=== PATIENT | female | born 1995 | race Caucasian/White ===

== ENCOUNTER → 2016-12-20 | Emergency (ER) | payer MEDICAID ==
[~2016-12-20] VITALS: Ht 157.5 cm; Wt 75.2 kg
[~2016-12-20] MED LIST: CEPH-443 PO; CIPR-193 PO; FLUC150T17 PO; HYDR-3498 PO; HYDR-906 PO; IBUP-1542 PO; IBUP800T25 PO; LIDOCAINE 2%/EPI MPF (SDV) 20 ML VIAL INJ ONE; SULF1TAB31 PO; TRAM50TA2 PO
[2016-12-20 20:37] VITALS: Ht 157.5 cm; Wt 75.2 kg
--- NOTE | 2016-12-20 23:52 | ERD ---
ER Documentation Chief Complaint Chief Complaint Right flank pain x 3 days HPI Otherwise healthy 21-year-old female presenting with a chief complaint of back pain 2 days. Patient has had symptoms like this in the past that have resolved spontaneously. Patient denies mechanism of injury, history of cancer, recent illness, unexplained weight loss, saddle anesthesia, general neurological deficit, incontinence, urinary retention, thoracic pain, or pain at rest. Has not taken any medications to relieve the symptoms. Patient has no other complaints and describes no other associated manifestations. Nursing notes have been reviewed and are consistent with history given. ROS All systems reviewed and are negative except as per history of present illness. Medications Home Meds Active Scripts Hydrocodone/Acetaminophen ([place] 5-325 Tablet) 1 Each Tablet, 1 TAB PO Q6H Y for PAIN, #7 TAB Prov:HAILEY PEREZ PA-C 12/21/16 Sulfamethoxazole/Trimethoprim* (Bactrim Ds* Tablet) 1 Each Tablet, 1 TAB PO BID , #14 TAB Prov:HAILEY PEREZ PA-C 12/21/16 Cephalexin* (Keflex*) 500 Mg Capsule, 500 MG PO QID for 5 Days, CAP Prov:HAILEY PEREZ PA-C 12/21/16 Fluconazole* (Diflucan*) 150 Mg Tablet, 150 MG PO DAILY, #1 TAB Prov:TERRA COLMENARES NP 01/08/16 Ciprofloxacin Hcl* (Ciprofloxacin Hcl*) 250 Mg Tablet, 250 MG PO BID, #6 TAB Prov:TERRA COLMENARES NP 01/08/16 Tramadol HCl (Tramadol HCl) 50 Mg Tab, 50 MG PO Q4 Y for PAIN, #20 TAB Prov:JERILYN OLIVA PA-C 12/12/14 Hydrocodone Bit-Acetaminophen* ([place]*) 5-325 Mg Tab, 1 TAB PO Q6 Y for PAIN, # 20 TAB Prov:OMAR CRAWLEY NP 12/03/14 Ibuprofen* (Ibuprofen*) 600 Mg Tablet, 600 MG PO Q6H Y for PA, #30 TAB Prov:OMAR CRAWLEY NP 12/03/14 Reported Medications [none] Unknown Strength No Conflict Check 12/03/14 Allergies Allergies: Uncoded Allergies: ORANGE (Allergy, Severe, facial itching, 10/07/11) PMhx/Soc Medical and Surgical Hx: pt denies Medical Hx History of Surgery: Yes (Tonsillectomy) Anesthesia Reaction: No Hx Neurological Disorder: No Hx Respiratory Disorders: No Hx Cardiac Disorders: No Hx Psychiatric Problems: No Hx Miscellaneous Medical Probl: No Hx Alcohol Use: Yes Hx Substance Use: No Hx Tobacco Use: Yes Smoking Status: Current every day smoker Physical Exam Vitals Vital Signs Date Time Temp Pulse Resp B/P Pulse Ox O2 Delivery O2 Flow Rate FiO2 12/20/16 20:37 98.9 114 20 122/75 99 Physical Exam Const: Well-appearing 21-year-old female no acute distress lying on the gurney with initial presentation Head: Atraumatic Eyes: Normal Conjunctiva. No nystagmus. EOMI, PERRLA. ENT: Normal External Ears, Nose and Mouth. Neck: Full range of motion..~ No meningismus. Resp: Clear to auscultation bilaterally Cardio: Regular rate and rhythm, no murmurs. Cap refill less than 2 seconds. Dorsalis pedis posterior tibial pulses 2+. Radial pulses 2+. Abd: Soft, non tender, non distended. Normal bowel sounds Skin: No petechiae or rashes. 3 cm erythematous nonraised tender to palpation and fluctuant area over the upper right aspect of the buttocks. No discharge noted. Mild induration. Back: No midline or flank tenderness. Negative straight leg raise. Neurologically intact. Limited range of motion secondary to pain. Ext: No cyanosis, or edema Neur: Awake and alert Psych: Normal Mood and Affect Results 24 hrs Current Medications Medications (Trade) Dose Ordered Sig/Jeremiah Route PRN Reason Start Time Stop Time Status Last Admin Dose Admin Lidocaine/ Epinephrine (Xylocaine 2%/ Epi Mpf(Sdv)) 20 ml ONCE ONCE INJ 12/21/16 00:00 12/21/16 00:01 DC Procedures/MDM Otherwise healthy 19-year-old female presenting with a chief complaint of back pain 2 days. No indications for CT or MRI. Radiograph was obtained read by the radiologist as unremarkable. Skin complaint is most consistent with abscess versus pilonidal cyst. Area was anesthetized with 3 mL of lidocaine with epi. Adequate anesthesia. I&D was performed making a 1 cm horizontal laceration. 3-4 mL of blood was expressed. No purulent material was expressed. Area was packed with approximately 7 cm of packing with quarter inch. Antibiotics given including Bactrim and Keflex. I have no suspicion for cauda equina bony pathology or other neurovascular compromise. No suspicion for osteomyelitis, spreading cellulitis, or other serious bacterial infection. Most likely diagnosis is back pain of unknown etiology versus strain versus sprain. As well as skin abscess versus pilonidal cyst. I have spoke with the patient regarding their condition and future management. They have verbally responded that they understand their status and treatment plan. The patients vitals are stable, and their current condition is appropriate for discharge. The patient will be given discharge instructions with return precautions. Departure Diagnosis: Primary Impression: Abscess Additional Impression: Back pain Back pain location: low back pain Chronicity: chronic Back pain laterality : unspecified Sciatica presence: without sciatica Qualified Code: M54.5 - Chronic low back pain without sciatica, unspecified back pain laterality Condition: Stable Additional Instructions: Return 2 days for wound check. Take medications as prescribed. Finish the entire course of antibiotics. If symptoms worsen or change return to the emergency department immediately. If any adverse reactions occur with the medications discontinue them and return to the emergency department immediately. You have any questions about the medications ask us before you leave or consult the pharmacist. HAILEY PEREZ PA-C Dec 20, 2016 23:52
--- NOTE | 2016-12-21 01:51 | RADRPT ---
PROCEDURE: LUMBAR SPINE - 4 VIEWS CLINICAL INDICATION: 21-year-old female with back pain. TECHNIQUE: AP, lateral and cone-down lateral view of the lumbar spine were obtained. The images we re reviewed on a PACS workstation. COMPARISON: None. FINDINGS: The lumbar vertebral bodies and disk spaces have normal heights and anatomic alignment. No evidence of fracture or subluxation is seen. There is a anterosuperior L3 limbus vertebra identified. No sign ificant spondylolisthesis is seen. The partially visualized sacrum is unremarkable. The sacroiliac j oints are intact. There is retained stool within the colon without an obstructive pattern. IMPRESSION: 1. No acute fracture or dislocation. 2. Anterosuperior L3 limbus vertebra. 3. Retained stool. .Hayes Horn MD, Date Time Electronically viewed and signed by .Hayes Horn MD, on 12/21/2016 01:51 .M/
[2016-12-21 02:02] VITALS: BP 120/72; PULSE 100; RESP 20; TEMP 98.9
== END | disposition home or self-care (01) ==
LOC: FTE 20:11
DX: L02.31 Cutaneous abscess of buttock (principal); M54.5 Low back pain; F17.210 Nicotine dependence, cigarettes, uncomplicated
CPT/HCPCS: 10060; 72100; Z7502; Z7610

== ENCOUNTER 2016-12-24 00:13 | Emergency (ER) | payer MEDICAID ==
[~2016-12-24] VITALS: Ht 160 cm; Wt 71.5 kg
[~2016-12-24 00:13] MED LIST changes: -IBUP800T25 PO; -LIDOCAINE 2%/EPI MPF (SDV) 20 ML VIAL INJ ONE
[2016-12-24 00:15] VITALS: Ht 160 cm; Wt 71.5 kg
--- NOTE | 2016-12-24 02:06 | ERD ---
ER Documentation Chief Complaint Chief Complaint HPI 21-year-old female who presents emergency department for a wound check to her buttock area. Stated that she had I&D with packing 4 days ago that was done here in the emergency department. LMP: 15 days ago. A1. Denies headache, dizziness, blurred vision, neck pain, shoulder pain, chest pain , abdominal pain, nausea, vomiting, constipation, diarrhea, loss of bowel bladder control, changes in bowel bladder habits, or possibility of being , urinary symptoms, numbness or tingling sensation, fever, chills. Allergies to arrange. No past medical history. Surgical history of tonsillectomy. Medication: Been taking Keflex and Bactrim. Social: Not working at this time. Occasional drinks alcoholic beverages. Denies smoking, use of alcoholic beverages, use of illegal drugs. ROS All systems reviewed and are negative except as per history of present illness. Medications Home Meds Active Scripts Ibuprofen* (Motrin*) 800 Mg Tab, 800 MG PO Q8 Y for PAIN AND OR ELEVATED TEMP, # 30 TAB Prov:ROEL FRAGA 12/24/16 Hydrocodone/Acetaminophen ([place] 5-325 Tablet) 1 Each Tablet, 1 TAB PO Q6H Y for PAIN, #7 TAB Prov:HAILEY PEREZ PA-C 12/21/16 Sulfamethoxazole/Trimethoprim* (Bactrim Ds* Tablet) 1 Each Tablet, 1 TAB PO BID , #14 TAB Prov:HAILEY PEREZ PA-C 12/21/16 Cephalexin* (Keflex*) 500 Mg Capsule, 500 MG PO QID for 5 Days, CAP Prov:HAILEY PEREZ PA-C 12/21/16 Fluconazole* (Diflucan*) 150 Mg Tablet, 150 MG PO DAILY, #1 TAB Prov:TERRA COLMENARES NP 01/08/16 Ciprofloxacin Hcl* (Ciprofloxacin Hcl*) 250 Mg Tablet, 250 MG PO BID, #6 TAB Prov:TERRA COLMENARES NP 01/08/16 Tramadol HCl (Tramadol HCl) 50 Mg Tab, 50 MG PO Q4 Y for PAIN, #20 TAB Prov:JERILYN OLIVA PA-C 12/12/14 Hydrocodone Bit-Acetaminophen* ([place]*) 5-325 Mg Tab, 1 TAB PO Q6 Y for PAIN, # 20 TAB Prov:OMAR CRAWLEY NP 12/03/14 Ibuprofen* (Ibuprofen*) 600 Mg Tablet, 600 MG PO Q6H Y for PA, #30 TAB Prov:OMAR CRAWLEY NP 12/03/14 Reported Medications [none] Unknown Strength No Conflict Check 12/03/14 Allergies Allergies: Uncoded Allergies: ORANGE (Allergy, Severe, facial itching, 10/07/11) PMhx/Soc History of Surgery: Yes (Tonsillectomy) Anesthesia Reaction: No Hx Neurological Disorder: No Hx Respiratory Disorders: No Hx Cardiac Disorders: No Hx Psychiatric Problems: No Hx Miscellaneous Medical Probl: No Hx Alcohol Use: Yes Hx Substance Use: No Hx Tobacco Use: Yes Smoking Status: Never smoker Physical Exam Vitals Vital Signs Date Time Temp Pulse Resp B/P Pulse Ox O2 Delivery O2 Flow Rate FiO2 12/24/16 00:15 98.5 62 81 144/61 100 Physical Exam Const: [] Head: Atraumatic Eyes: Normal Conjunctiva ENT: Normal External Ears, Nose and Mouth. Neck: Full range of motion..~ No meningismus. Resp: Clear to auscultation bilaterally Cardio: Regular rate and rhythm, no murmurs Abd: Soft, non tender, non distended. Normal bowel sounds Skin: No petechiae or rashes Back: No midline or flank tenderness Ext: No cyanosis, or edema Neur: Awake and alert Psych: Normal Mood and Affect Procedures/MDM 21-year-old female who presents emergency department for a wound check to her buttock area. Stated that she had I&D with packing 4 days ago that was done here in the emergency department. LMP: 15 days ago. A1. Denies headache, dizziness, blurred vision, neck pain, shoulder pain, chest pain , abdominal pain, nausea, vomiting, constipation, diarrhea, loss of bowel bladder control, changes in bowel bladder habits, or possibility of being , urinary symptoms, numbness or tingling sensation, fever, chills. Allergies to arrange. No past medical history. Surgical history of tonsillectomy. Medication: Been taking Keflex and Bactrim. Social: Not working at this time. Occasional drinks alcoholic beverages. Denies smoking, use of alcoholic beverages, use of illegal drugs. Physical exam: Right buttock area has wound with packing. No discharge. No bleeding. No induration. Examined with female rug hooker, Pearl DAVIS. Disease process was explained to the patient and family member. They both verbalized understanding and agreed with the plan of care. Treatment: Removal of packing. Bacitracin applied. Dressing applied. Reevaluation: No active bleeding. No discharge. No induration. Denies pain. Ambulatory with steady gait. No neurological deficits. No neurovascular deficits. Differential diagnosis: Wound check. Final diagnosis: Wound check. Prescription: Instructed to continue her prescribed medications. Follow-up with PCP in the next 24-48 hours. Come back here in the emergency department for any new symptoms or any worsening of symptoms. Come back here in the emergency department in 2 days for wound check. All questions and concerns are answered. Patient and family member verbalized understanding and agreed with the plan of care. Hemodynamically stable on discharge. Departure Diagnosis: Primary Impression: Encounter for wound re-check Condition: Stable Additional Instructions: Follow-up with PCP in the next 24-48 hours. Come back here in the emergency department for any new symptoms or any worsening of symptoms. Come back here in the emergency department in 2 days for wound check. All questions and concerns are answered. Patient and family member verbalized understanding and agreed with the plan of care. ROEL FRAGA Dec 24, 2016 02:06
[2016-12-24] MEDS ORDERED: IBUP800T25 PO (02:51)
== END 2016-12-24 03:03 | disposition home or self-care (01) ==
LOC: FTE 00:13
DX: Z48.01 Encounter for change or removal of surgical wound dressing (principal); Z87.891 Personal history of nicotine dependence
CPT/HCPCS: 99283

== ENCOUNTER 2017-09-09 19:06 | Emergency (ER) | END 2017-09-09 20:14 | disposition home or self-care (01) ==

== ENCOUNTER 2017-10-09 18:04 | Emergency (ER) | END 2017-10-09 20:30 | disposition home or self-care (01) ==

== ENCOUNTER 2018-01-25 18:34 | Emergency (ER) | payer SELFPAY ==
[~2018-01-25] VITALS: Ht 157.5 cm; Wt 71.5 kg
[~2018-01-25 18:34] MED LIST changes: +ELIM TOP; +FLUC150T PO; -FLUC150T17 PO; +HYDR-4011 PO; +HYDR-842 PO; -HYDR-906 PO; +IBUP800T48 PO
[2018-01-25 18:36] VITALS: Ht 157.5 cm; Wt 71.5 kg
[2018-01-25] MEDS ORDERED: MED4DP PO (19:43)
[2018-01-25] MEDS ORDERED: LORA10CA PO (19:43)
[2018-01-25] MEDS ORDERED: FLUT9.9S NASAL (19:43)
[2018-01-25 19:53] VITALS: BP 121/67; PULSE 73; RESP 16
--- NOTE | 2018-01-26 01:11 | ERD ---
ER Documentation Chief Complaint Chief Complaint skin below the eyes is swelling today HPI Patient is a 22-year-old female with no significant medical history presenting to the emergency department with her friend complaining of nasal drainage and some mild swelling beneath her right eye for the past 1 day. She has also had itchy throat and nose. Symptoms are intermittent. She denies any fevers. She denies any redness or warmth to her face. Symptoms are moderate in severity. She took no medication for relief of symptoms. She denies any other symptoms or complaints at this time. ROS All systems reviewed and are negative except as per history of present illness. Medications Home Meds Active Scripts Loratadine* (Claritin*) 10 Mg Capsule, 10 MG PO DAILY, #30 CAP Prov:MARCUS CUEVA PA-C 01/25/18 Methylprednisolone* (Medrol* DOSE PACK) 4 Mg/Dose-Pack Tab.ds.pk, 4 MG PO . DIRECTED, #1 PACKET Prov:MARCUS CUEVA PA-C 01/25/18 Fluticasone Propionate (Flonase Allergy Relief) 9.9 Ml [place].susp, 1 SPRAY NASAL BID, #1 BOTTLE TO EACH NOSTRIL Prov:MARCUS CUEVA PA-C 01/25/18 Permethrin* (Elimite*) 5% Cr, 1 APPLIC TOP ONCE, #2 TUB Prov:MARCUS CUEVA PA-C 09/09/17 Hydroxyzine Hcl* (Atarax*) 25 Mg Tab, 25 MG PO Q6H PRN for ITCHING, #15 TAB Prov:MARCUS CUEVA PA-C 09/09/17 Ibuprofen* (Motrin*) 800 Mg Tab, 800 MG PO Q8 PRN for PAIN AND OR ELEVATED TEMP, #30 TAB Prov:ROEL FRAGA 12/24/16 Hydrocodone/Acetaminophen ([place] 5-325 Tablet) 1 Each Tablet, 1 TAB PO Q6H PRN for PAIN, #7 TAB Prov:HAILEY PEREZ PA-C 12/21/16 Sulfamethoxazole/Trimethoprim* (Bactrim Ds* Tablet) 1 Each Tablet, 1 TAB PO BID, #14 TAB Prov:HAILEY PEREZ PA-C 12/21/16 Cephalexin* (Keflex*) 500 Mg Capsule, 500 MG PO QID for 5 Days, CAP Prov:HAILEY PEREZ PA-C 12/21/16 Fluconazole* (Diflucan*) 150 Mg Tablet, 150 MG PO DAILY, #1 TAB Prov:TERRA COLMENARES NP 01/08/16 Ciprofloxacin Hcl* (Ciprofloxacin Hcl*) 250 Mg Tablet, 250 MG PO BID, #6 TAB Prov:TERRA COLMENARES NP 01/08/16 Tramadol HCl (Tramadol HCl) 50 Mg Tab, 50 MG PO Q4 PRN for PAIN, #20 TAB Prov:JERILYN OLIVA PA-C 12/12/14 Hydrocodone Bit-Acetaminophen* ([place]*) 5-325 Mg Tab, 1 TAB PO Q6 PRN for PAIN, #20 TAB Prov:OMAR CRAWLEY NP 12/03/14 Ibuprofen* (Ibuprofen*) 600 Mg Tablet, 600 MG PO Q6H PRN for PA, #30 TAB Prov:OMAR CRAWLEY NP 12/03/14 Reported Medications [none] Unknown Strength No Conflict Check 12/03/14 Allergies Allergies: Coded Allergies: orange (Verified Allergy, Unknown, facial itchiness, 09/09/17) PMhx/Soc History of Surgery: Yes (Tonsillectomy) Anesthesia Reaction: No Hx Neurological Disorder: No Hx Respiratory Disorders: No Hx Cardiac Disorders: No Hx Psychiatric Problems: No Hx Miscellaneous Medical Probl: No Hx Alcohol Use: Yes Hx Substance Use: No Hx Tobacco Use: Yes Smoking Status: Never smoker FmHx Family History: No diabetes Physical Exam Vitals Vital Signs Date Temp Pulse Resp B/P (MAP) Pulse Ox O2 O2 Flow FiO2 Time Delivery Rate 01/25/18 98.0 73 16 121/67 100 Room Air 19:53 (85) 01/25/18 97.1 82 18 121/68 100 18:36 (85) Physical Exam Const: No acute distress Head: Atraumatic Eyes: Normal Conjunctiva. Mild edema noted infraorbitally on the right. No periorbital erythema or crepitus to palpation. Extraocular movements intact bilaterally. ENT: Normal External Ears, Nose and Mouth. Nares are congested. Neck: Full range of motion. No meningismus. Resp: Clear to auscultation bilaterally Cardio: Regular rate and rhythm, no murmurs Skin: No petechiae or rashes Ext: No cyanosis, or edema Neur: Awake and alert Psych: Normal Mood and Affect Procedures/MDM 22-year-old female presenting to the emergency department complaining of some swelling beneath her right eye. Vital signs are stable and the patient is nontoxic and well-appearing. She is afebrile. History and physical examination was consistent with acute sinusitis. There is no evidence of facial cellulitis, periorbital cellulitis, deep space infection, sepsis, or other em ergencies. Patient is stable and appropriate for further treatment as an outpatient. She was advised to follow-up with her primary care physician and return to the department immediately for any new or worsening symptoms. She agreed with the diagnosis, plan, need for follow-up, return precautions. Departure Diagnosis: Primary Impression: Acute sinusitis Sinusitis location: unspecified location Recurrence: not specified as recurrent Qualified Codes: J01.90 - Acute sinusitis, unspecified Condition: Fair Patient Instructions: Sinusitis, No Abx Referrals: [facility] YOU HAVE RECEIVED A MEDICAL SCREENING EXAM AND THE RESULTS INDICATE THAT YOU DO NOT HAVE A CONDITION THAT REQUIRES URGENT TREATMENT IN THE EMERGENCY DEPARTMENT. FURTHER EVALUATION AND TREATMENT OF YOUR CONDITION CAN WAIT UNTIL YOU ARE SEEN IN YOUR DOCTORS OFFICE WITHIN THE NEXT 1-2 DAYS. IT IS YOUR RESPONSIBILITY TO MAKE AN APPOINTMENT FOR FOLOW-UP CARE. IF YOU HAVE A PRIMARY DOCTOR --you should call your primary doctor and schedule an appointment IF YOU DO NOT HAVE A PRIMARY DOCTOR YOU CAN CALL OUR PHYSICIAN REFERRAL HOTLINE AT IF YOU CAN NOT AFFORD TO SEE A PHYSICIAN YOU CAN CHOSE FROM THE FOLLOWING COM [facility] [address] [facility] [address] [facility]. [facility] [address] [facility] [address] [facility] [address] [facility]. [facility]. [address] Additional Instructions: Call your primary care doctor TOMORROW for an appointment during the next 1-2 days.See the doctor sooner or return here if your condition worsens before your appointment time. MARCUS CUEVA PA-C Jan 26, 2018 01:11
== END 2018-01-25 19:54 | disposition home or self-care (01) ==
LOC: FTE 18:34
DX: J01.90 Acute sinusitis, unspecified (principal); Z87.891 Personal history of nicotine dependence
CPT/HCPCS: 99283

== ENCOUNTER 2018-04-18 11:16 | Emergency (ER) | payer SELFPAY ==
[~2018-04-18] VITALS: Ht 160 cm; Wt 71.3 kg
[~2018-04-18 11:16] MED LIST changes: +FLUT9.9S NASAL; +LORA10CA PO; +MED4DP PO
[2018-04-18 11:48] VITALS: BP 135/70; PULSE 104; RESP 20; Ht 160 cm; Wt 71.3 kg
[2018-04-18] MEDS ORDERED: ACET-141 PO (12:46)
[2018-04-18] MEDS ORDERED: IBUP-1561 PO (12:46)
[2018-04-18] MEDS ORDERED: SULF1TAB31 PO (12:46)
--- NOTE | 2018-04-18 12:53 | ERD ---
ER Documentation Chief Complaint Chief Complaint LUMP @ COCCYX AREA / BACK PAIN STARTED YESTERDAY HPI 21-year-old female presents for coccyx area lump and pain times 1 day. She states that the pain is 10 out of 10. She has not tried any treatments at home. She states that about a year ago she had an abscess in the area that was drained. She denies fevers or chills. No significant past medical history. ROS All systems reviewed and are negative except as per history of present illness. Medications Home Meds Active Scripts Acetaminophen* (Acetaminophen*) 500 MG Extra Strength Tablet, 500 MG PO Q4H PRN for PAIN AND OR ELEVATED TEMP, #30 TAB Prov:HAILEY GOMEZ DO 04/18/18 Ibuprofen* (Motrin*) 400 Mg Tab, 400 MG PO Q6H PRN for PAIN AND OR ELEVATED TEMP, #30 TAB Prov:HAILEY GOMEZ DO 04/18/18 Sulfamethoxazole/Trimethoprim* (Bactrim Ds* Tablet) 1 Each Tablet, 1 TAB PO BID for abscess for 7 Days, #14 TAB Prov:HAILEY GOMEZ DO 04/18/18 Loratadine* (Claritin*) 10 Mg Capsule, 10 MG PO DAILY, #30 CAP Prov:MARCUS CUEVA PA-C 01/25/18 Methylprednisolone* (Medrol* DOSE PACK) 4 Mg/Dose-Pack Tab.ds.pk, 4 MG PO . DIRECTED, #1 PACKET Prov:MARCUS CUEVA PA-C 01/25/18 Fluticasone Propionate (Flonase Allergy Relief) 9.9 Ml [place].susp, 1 SPRAY NASAL BID, #1 BOTTLE TO EACH NOSTRIL Prov:MARCUS CUEVA PA-C 01/25/18 Permethrin* (Elimite*) 5% Cr, 1 APPLIC TOP ONCE, #2 TUB Prov:MARCUS CUEVA PA-C 09/09/17 Hydroxyzine Hcl* (Atarax*) 25 Mg Tab, 25 MG PO Q6H PRN for ITCHING, #15 TAB Prov:MARCUS CUEVA PA-C 09/09/17 Ibuprofen* (Motrin*) 800 Mg Tab, 800 MG PO Q8 PRN for PAIN AND OR ELEVATED TEMP, #30 TAB Prov:ROEL FRAGA 12/24/16 Hydrocodone/Acetaminophen ([place] 5-325 Tablet) 1 Each Tablet, 1 TAB PO Q6H PRN for PAIN, #7 TAB Prov:HAILEY PEREZ PA-C 12/21/16 Sulfamethoxazole/Trimethoprim* (Bactrim Ds* Tablet) 1 Each Tablet, 1 TAB PO BID, #14 TAB Prov:HAILEY PEREZ PA-C 12/21/16 Cephalexin* (Keflex*) 500 Mg Capsule, 500 MG PO QID for 5 Days, CAP Prov:HAILEY PEREZ PA-C 12/21/16 Fluconazole* (Diflucan*) 150 Mg Tablet, 150 MG PO DAILY, #1 TAB Prov:TERRA COLMENARES NP 01/08/16 Ciprofloxacin Hcl* (Ciprofloxacin Hcl*) 250 Mg Tablet, 250 MG PO BID, #6 TAB Prov:TERRA COLMENARES NP 01/08/16 Tramadol HCl (Tramadol HCl) 50 Mg Tab, 50 MG PO Q4 PRN for PAIN, #20 TAB Prov:JERILYN OLIVA PA-C 12/12/14 Hydrocodone Bit-Acetaminophen* ([place]*) 5-325 Mg Tab, 1 TAB PO Q6 PRN for PAIN, #20 TAB Prov:OMAR CRAWLEY NP 12/03/14 Ibuprofen* (Ibuprofen*) 600 Mg Tablet, 600 MG PO Q6H PRN for PA, #30 TAB Prov:OMAR CRAWLEY NP 12/03/14 Reported Medications [none] Unknown Strength No Conflict Check 12/03/14 Allergies Allergies: Coded Allergies: orange (Verified Allergy, Unknown, facial itchiness, 04/18/18) PMhx/Soc History of Surgery: Yes (Tonsillectomy) Anesthesia Reaction: No Hx Neurological Disorder: No Hx Respiratory Disorders: No Hx Cardiac Disorders: No Hx Psychiatric Problems: No Hx Miscellaneous Medical Probl: No Hx Alcohol Use: Yes Hx Substance Use: No Hx Tobacco Use: Yes Smoking Status: Current every day smoker Physical Exam Vitals Vital Signs Date Temp Pulse Resp B/P (MAP) Pulse Ox O2 O2 Flow FiO2 Time Delivery Rate 04/18/18 99.5 104 20 135/70 98 11:48 (91) Physical Exam Const: No acute distress Resp: Clear to auscultation bilaterally Cardio: Regular rate and rhythm, no murmurs Abd: Soft, non tender, non distended. Normal bowel sounds Skin: Examination of the coccyx area with nursing staff at bedside, there is a area of induration and erythema, no underlying fluctuance, about 1 cm Back: No midline or flank tenderness Ext: No cyanosis, or edema Neur: Awake and alert Psych: Normal Mood and Affect Procedures/MDM Medical Decision Making: Differential diagnosis includes but not limited to abscess, cellulitis, dermatitis, allergic reaction Patient appeared well on physical exam. This examination of the coccyx area consistent with an abscess. There was induration but no underlying fluctuance. Decision was made to treat with antibiotics. Patient advised that if the area becomes fluctuant and or her symptoms do not improve she may need a procedure. Advised to return to the ER if no improvement. Prescription(s): Patient given prescription for Bactrim and supportive medications. Patient advised to follow up with PCP in 1-2 days. Patient advised to return to ED for new or worsening symptoms. Patient stable on discharge from the ED. Disclaimer: Inadvertent spelling and grammatical errors are likely due to EHR/dictation software use and do not reflect on the overall quality of patient care. Also, please note that the electronic time recorded on this note does not necessarily reflect the actual time of the patient encounter. Departure Diagnosis: Primary Impression: Abscess of coccyx Condition: Fair Patient Instructions: Abscess, Antiobiotic Treatment Only Additional Instructions: Call your primary care doctor TOMORROW for an appointment during the next 1-2 days.See the doctor sooner or return here if your condition worsens before your appointment time. HAILEY GOMEZ DO Apr 18, 2018 12:53
== END 2018-04-18 13:01 | disposition home or self-care (01) ==
LOC: FTE 11:16
DX: L05.02 Pilonidal sinus with abscess (principal); F17.210 Nicotine dependence, cigarettes, uncomplicated
CPT/HCPCS: 99283